=== PATIENT | male | born 1955 | race Hispanic/Latino ===

== ENCOUNTER 2018-03-31 20:53 | Emergency (ER) | payer MEDICARE ==
[~2018-03-31] VITALS: Ht 167.6 cm; Wt 74.8 kg
--- OUTSIDE RECORDS SUMMARY | 2018-03-31 20:56 | XMS REPORT ---
Author Author [facility] Address Unknown Phone Unavailable Care Team Providers Care Laborer [employer] Name Role Phone Unavailable Unavailable Problems This patient has no known problems. Allergies, Adverse Reactions, Alerts This patient has no known allergies or adverse reactions. Medications This patient has no known medications. Encounters Start Date/Time End Date/Time Encounter Type Admission Type Attending [facility] Care Department Encounter ID 2018-04-04 00:00:00 Inpatient [facility] [id number] 2018-03-21 09:30:23 Inpatient [facility] [id number] 2018-01-03 00:00:00 Inpatient [facility] [id number] 2017-12-20 13:25:37 Inpatient [facility] [id number] 2017-11-22 11:44:08 Inpatient [facility] [id number] 2017-10-25 13:36:26 Inpatient [facility] [id number] 2017-09-13 12:56:28 Inpatient [facility] [id number] 2017-09-02 00:00:00 Inpatient [facility] [id number] 2017-08-23 00:00:00 Inpatient [facility] [id number] 2017-08-21 11:49:01 Inpatient [facility] [id number] 2017-08-21 00:00:00 Inpatient [facility] [id number] 2018-04-04 00:00:00 2018-04-04 00:00:00 Outpatient [facility] [id number] 2018-03-24 15:07:13 2018-03-24 15:07:13 Outpatient [facility] [id number] 2018-03-24 14:13:35 2018-03-24 14:13:35 Outpatient [facility] [id number] 2018-03-24 00:00:00 2018-03-24 00:00:00 Outpatient [facility] [id number] 2018-03-22 18:10:41 2018-03-22 18:10:41 Emergency [facility] [id number] 2018-03-21 07:47:43 2018-03-21 07:47:43 Outpatient [facility] [id number] 2018-03-03 14:53:39 2018-03-03 14:53:39 Outpatient [facility] [id number] 2018-02-23 15:31:19 2018-02-23 15:31:19 Outpatient [facility] [id number] 2018-02-22 11:25:25 2018-02-22 11:25:25 Outpatient [facility] [id number] 2018-02-21 08:25:14 2018-02-21 08:25:14 Outpatient [facility] [id number] 2018-02-20 23:43:40 2018-02-20 23:43:40 Outpatient [facility] [id number] 2018-02-20 15:11:45 2018-02-20 15:11:45 Outpatient [facility] [id number] 2018-02-20 00:00:00 2018-02-20 00:00:00 Outpatient [facility] [id number] 2018-01-08 00:00:00 2018-01-08 00:00:00 Outpatient [facility] [id number] 2018-01-03 00:00:00 2018-01-03 00:00:00 Outpatient [facility] [id number] 2017-12-25 00:00:00 2017-12-25 00:00:00 Outpatient [facility] [id number] 2017-12-20 13:26:09 2017-12-20 13:26:09 Outpatient [facility] [id number] 2017-12-11 09:19:43 2017-12-11 09:19:43 Outpatient [facility] [id number] 2017-12-11 00:00:00 2017-12-11 00:00:00 Outpatient [facility] [id number] 2017-12-09 11:27:14 2017-12-09 11:27:14 Outpatient [facility] [id number] 2017-11-27 08:54:33 2017-11-27 08:54:33 Outpatient [facility] [id number] 2017-11-25 12:32:44 2017-11-25 12:32:44 Outpatient [facility] [id number] 2017-11-22 00:00:00 2017-11-22 00:00:00 Outpatient [facility] [id number] 2017-11-20 11:57:49 2017-11-20 11:57:49 Outpatient [facility] [id number] 2017-11-20 11:52:17 2017-11-20 11:52:17 Outpatient [facility] [id number] 2017-11-18 08:05:36 2017-11-18 08:05:36 Outpatient [facility] [id number] 2017-11-15 11:04:10 2017-11-15 11:04:10 Outpatient [facility] [id number] 2017-11-13 09:26:46 2017-11-13 09:26:46 Outpatient [facility] [id number] 2017-11-12 10:43:55 2017-11-12 10:43:55 Outpatient [facility] [id number] 2017-11-01 11:09:19 2017-11-01 11:09:19 Outpatient [facility] [id number] 2017-10-30 11:32:30 2017-10-30 11:32:30 Outpatient [facility] [id number] 2017-10-25 12:24:19 2017-10-25 12:24:19 Outpatient [facility] [id number] 2017-10-18 12:12:40 2017-10-18 12:12:40 Outpatient [facility] [id number] 2017-10-16 12:14:31 2017-10-16 12:14:31 Outpatient [facility] [id number] 2017-10-16 11:48:50 2017-10-16 11:48:50 Outpatient [facility] [id number] 2017-10-15 11:21:43 2017-10-15 11:21:43 Outpatient [facility] [id number] 2017-10-09 13:52:48 2017-10-09 13:52:48 Outpatient [facility] [id number] 2017-10-04 09:58:14 2017-10-04 09:58:14 Outpatient [facility] [id number] 2017-10-02 15:38:14 2017-10-02 15:38:14 Outpatient [facility] [id number] 2017-10-02 11:08:57 2017-10-02 11:08:57 Outpatient [facility] [id number] 2017-10-02 00:00:00 2017-10-02 00:00:00 Outpatient [facility] [id number] 2017-10-01 10:56:51 2017-10-01 10:56:51 Outpatient [facility] [id number] 2017-09-18 00:00:00 2017-09-18 00:00:00 Outpatient [facility] [id number] 2017-09-17 00:00:00 2017-09-17 00:00:00 Outpatient [facility] [id number] 2017-09-13 12:35:41 2017-09-13 12:35:41 Outpatient [facility] [id number] 2017-09-13 02:49:34 2017-09-13 02:49:34 Emergency [facility] [id number] 2017-09-12 21:16:57 2017-09-12 21:16:57 Emergency [facility] [id number] 2017-09-12 18:51:00 2017-09-12 18:51:00 Emergency [facility] [id number] 2017-09-06 00:00:00 2017-09-06 00:00:00 Outpatient [facility] [id number] 2017-09-04 00:00:00 2017-09-04 00:00:00 Outpatient [facility] [id number] 2017-09-03 00:00:00 2017-09-03 00:00:00 Outpatient [facility] [id number] 2017-09-02 00:00:00 2017-09-02 00:00:00 Outpatient [facility] [id number] 2017-08-23 10:37:46 2017-08-23 10:37:46 Outpatient [facility] [id number] 2017-08-23 00:00:00 2017-08-23 00:00:00 Outpatient [facility] [id number] 2017-08-21 13:15:51 2017-08-21 13:15:51 Outpatient [facility] [id number] 2017-08-21 00:00:00 2017-08-21 00:00:00 Outpatient [facility] [id number] 2017-08-20 12:18:49 2017-08-20 12:18:49 Outpatient [facility] [id number] 2017-08-09 10:34:49 2017-08-09 10:34:49 Outpatient [facility] [id number] 2017-08-07 11:19:55 2017-08-07 11:19:55 Outpatient [facility] [id number] 2017-08-06 10:24:43 2017-08-06 10:24:43 Outpatient [facility] [id number] 2017-08-01 00:00:00 2017-08-01 00:00:00 Outpatient [facility] [id number] 2017-08-01 00:00:00 2017-08-01 00:00:00 Outpatient [facility] [id number] 2017-07-30 00:00:00 2017-07-30 00:00:00 Outpatient [facility] [id number] 2017-07-26 10:41:56 2017-07-26 10:41:56 Outpatient [facility] [id number] 2017-07-25 00:00:00 2017-07-25 00:00:00 Outpatient [facility] [id number] 2017-07-24 11:34:13 2017-07-24 11:34:13 Outpatient [facility] [id number] 2017-07-22 11:45:33 2017-07-22 11:45:33 Outpatient [facility] [id number] 2017-07-22 11:10:33 2017-07-22 11:10:33 Outpatient [facility] [id number] 2017-07-19 08:14:55 2017-07-19 08:14:55 Outpatient [facility] [id number] 2017-07-17 00:00:00 2017-07-17 00:00:00 Outpatient [facility] [id number] 2017-07-17 00:00:00 2017-07-17 00:00:00 Outpatient [facility] [id number] 2017-07-12 11:14:42 2017-07-12 11:14:42 Outpatient [facility] [id number] 2017-07-10 11:33:50 2017-07-10 11:33:50 Outpatient [facility] [id number] 2017-07-09 00:00:00 2017-07-09 00:00:00 Outpatient [facility] [id number] 2017-07-08 11:17:23 2017-07-08 11:17:23 Outpatient [facility] [id number] 2017-07-08 10:28:49 2017-07-08 10:28:49 Outpatient [facility] [id number] 2017-06-28 12:08:39 2017-06-28 12:08:39 Outpatient [facility] [id number] 2017-06-27 00:00:00 2017-06-27 00:00:00 Outpatient [facility] [id number] 2017-06-27 00:00:00 2017-06-27 00:00:00 Outpatient [facility] [id number] 2017-06-26 11:32:11 2017-06-26 11:32:11 Outpatient [facility] [id number] 2017-06-25 00:00:00 2017-06-25 00:00:00 Outpatient [facility] [id number] 2017-06-24 12:20:46 2017-06-24 12:20:46 Outpatient [facility] [id number] 2017-06-24 10:52:36 2017-06-24 10:52:36 Outpatient [facility] [id number] 2017-06-19 09:28:02 2017-06-19 09:28:02 Outpatient [facility] [id number] 2017-06-19 09:06:14 2017-06-19 09:06:14 Outpatient [facility] [id number] 2017-06-17 11:11:13 2017-06-17 11:11:13 Outpatient [facility] [id number] 2017-06-14 09:42:47 2017-06-14 09:42:47 Outpatient [facility] [id number] 2017-06-12 11:33:59 2017-06-12 11:33:59 Outpatient [facility] [id number] 2017-06-11 10:58:44 2017-06-11 10:58:44 Outpatient [facility] [id number] 2017-05-31 15:05:47 2017-05-31 15:05:47 Outpatient [facility] [id number] 2017-05-29 11:27:48 2017-05-29 11:27:48 Outpatient [facility] [id number] 2017-05-27 12:18:16 2017-05-27 12:18:16 Outpatient [facility] [id number] 2017-05-27 12:03:44 2017-05-27 12:03:44 Outpatient [facility] [id number] 2017-05-16 10:44:51 2017-05-16 10:44:51 Outpatient [facility] [id number] 2017-05-14 11:47:13 2017-05-14 11:47:13 Outpatient [facility] [id number] 2017-05-13 11:57:48 2017-05-13 11:57:48 Outpatient [facility] [id number] 2017-05-02 10:11:58 2017-05-02 10:11:58 Outpatient [facility] [id number] 2017-04-30 11:06:48 2017-04-30 11:06:48 Outpatient [facility] [id number] 2017-04-26 11:17:18 2017-04-26 11:17:18 Outpatient [facility] [id number] 2017-04-26 10:31:12 2017-04-26 10:31:12 Outpatient [facility] [id number] 10:04:26 2017 10:04:26 Outpatient [facility] [id number] 2017-04-17 00:00:00 2017-04-17 00:00:00 Outpatient [facility] [id number] 2017-04-12 00:00:00 2017-04-12 00:00:00 Outpatient [facility] [id number] 2017-04-05 10:52:52 2017-04-05 10:52:52 Outpatient [facility] [id number] 2017-04-03 11:46:58 2017-04-03 11:46:58 Outpatient [facility] [id number] 2017-04-03 00:00:00 2017-04-03 00:00:00 Outpatient [facility] [id number] 2017-04-01 10:00:06 2017-04-01 10:00:06 Outpatient [facility] [id number] 2017-03-22 09:49:25 2017-03-22 09:49:25 Outpatient [facility] [id number] 2017-03-20 10:30:22 2017-03-20 10:30:22 Outpatient [facility] [id number] 2017-03-18 09:56:49 2017-03-18 09:56:49 Outpatient [facility] [id number] 2017-03-08 11:11:24 2017-03-08 11:11:24 Outpatient [facility] [id number] 2017-03-08 10:12:05 2017-03-08 10:12:05 Outpatient [facility] [id number] 2017-03-06 10:18:58 2017-03-06 10:18:58 Outpatient [facility] [id number] 2017-03-04 00:00:00 2017-03-04 00:00:00 Outpatient [facility] [id number] 2017-03-01 11:26:42 2017-03-01 11:26:42 Outpatient [facility] [id number] 2017-03-01 00:00:00 2017-03-01 00:00:00 Outpatient [facility] [id number] 2017-03-01 00:00:00 2017-03-01 00:00:00 Outpatient [facility] [id number] 2017-02-27 00:00:00 2017-02-27 00:00:00 Outpatient [facility] [id number] 2017-02-22 10:05:22 2017-02-22 10:05:22 Outpatient [facility] [id number] 2017-02-20 11:12:28 2017-02-20 11:12:28 Outpatient [facility] [id number] 2017-02-18 00:00:00 2017-02-18 00:00:00 Outpatient [facility] [id number] 2017-02-15 10:18:14 2017-02-15 10:18:14 Outpatient [facility] [id number] 2017-02-15 09:42:08 2017-02-15 09:42:08 Outpatient [facility] [id number] 2017-02-13 09:49:23 2017-02-13 09:49:23 Outpatient [facility] [id number] 2017-02-13 09:43:03 2017-02-13 09:43:03 Outpatient [facility] [id number] 2017-02-11 10:09:53 2017-02-11 10:09:53 Outpatient [facility] [id number] 2017-02-08 10:28:55 2017-02-08 10:28:55 Outpatient [facility] [id number] 2017-02-06 12:04:12 2017-02-06 12:04:12 Outpatient [facility] [id number] 2017-02-05 00:00:00 2017-02-05 00:00:00 Outpatient [facility] [id number] 2017-02-01 09:41:34 2017-02-01 09:41:34 Outpatient [facility] [id number] 2017-02-01 00:00:00 2017-02-01 00:00:00 Outpatient [facility] [id number] 2017-01-25 16:12:01 2017-01-25 16:12:01 Outpatient [facility] [id number] 2017-01-25 11:29:36 2017-01-25 11:29:36 Outpatient [facility] [id number] 2017-01-24 00:00:00 2017-01-24 00:00:00 Outpatient [facility] [id number] 2017-01-23 10:35:12 2017-01-23 10:35:12 Outpatient [facility] [id number] 2017-01-21 00:00:00 2017-01-21 00:00:00 Outpatient [facility] [id number] 2017-01-18 08:46:36 2017-01-18 08:46:36 Outpatient [facility] [id number] 2017-01-11 10:39:36 2017-01-11 10:39:36 Outpatient [facility] [id number] 2017-01-11 00:00:00 2017-01-11 00:00:00 Outpatient [facility] [id number] 2017-01-09 10:46:38 2017-01-09 10:46:38 Outpatient [facility] [id number] 2017-01-07 00:00:00 2017-01-07 00:00:00 Outpatient [facility] [id number] 2017-01-04 11:00:45 2017-01-04 11:00:45 Outpatient [facility] [id number] 2017-01-04 09:56:25 2017-01-04 09:56:25 Outpatient [facility] [id number] 2017-01-04 00:00:00 2017-01-04 00:00:00 Outpatient [facility] [id number] 2017-01-02 09:58:19 2017-01-02 09:58:19 Outpatient [facility] [id number] 2017-01-02 09:58:15 2017-01-02 09:58:15 Outpatient [facility] [id number] 2016-12-31 10:53:42 2016-12-31 10:53:42 Outpatient [facility] [id number] 2016-12-28 11:34:24 2016-12-28 11:34:24 Outpatient [facility] [id number] 2016-12-26 11:29:13 2016-12-26 11:29:13 Outpatient [facility] [id number] 2016-12-25 10:58:18 2016-12-25 10:58:18 Outpatient [facility] [id number] 2016-12-25 00:00:00 2016-12-25 00:00:00 Outpatient [facility] [id number] 2016-12-25 00:00:00 2016-12-25 00:00:00 Outpatient [facility] [id number] 2016-12-21 00:00:00 2016-12-21 00:00:00 Outpatient [facility] [id number] 2016-12-14 08:31:08 2016-12-14 08:31:08 Outpatient [facility] [id number] 2016-12-12 11:37:45 2016-12-12 11:37:45 Outpatient [facility] [id number] 2016-12-10 00:00:00 2016-12-10 00:00:00 Outpatient [facility] [id number] 2016-12-10 00:00:00 2016-12-10 00:00:00 Outpatient [facility] [id number] 2016-12-07 11:44:47 2016-12-07 11:44:47 Outpatient [facility] [id number] 2016-12-07 10:44:14 2016-12-07 10:44:14 Outpatient [facility] [id number] 2016-11-30 09:42:00 2016-11-30 09:42:00 Outpatient [facility] [id number] 2016-11-28 10:16:40 2016-11-28 10:16:40 Outpatient [facility] [id number] 2016-11-26 08:14:41 2016-11-26 08:14:41 Outpatient [facility] [id number] 2016-11-26 00:00:00 2016-11-26 00:00:00 Outpatient [facility] [id number] 2016-11-23 00:00:00 2016-11-23 00:00:00 Outpatient [facility] [id number] 2016-11-20 00:00:00 2016-11-20 00:00:00 Outpatient [facility] [id number] 2016-11-16 10:26:07 2016-11-16 10:26:07 Outpatient [facility] [id number] 2016-11-14 10:11:21 2016-11-14 10:11:21 Outpatient [facility] [id number] 2016-11-12 00:00:00 2016-11-12 00:00:00 Outpatient [facility] [id number] 2016-11-09 12:19:25 2016-11-09 12:19:25 Outpatient [facility] [id number] 2016-11-09 10:49:59 2016-11-09 10:49:59 Outpatient [facility] [id number] 2016-11-08 08:36:42 2016-11-08 08:36:42 Outpatient [facility] [id number] 2016-11-08 08:28:03 2016-11-08 08:28:03 Outpatient [facility] [id number] 2016-11-06 07:49:09 2016-11-06 07:49:09 Outpatient [facility] [id number] 2016-11-06 00:00:00 2016-11-06 00:00:00 Outpatient [facility] [id number] 2016-11-02 00:00:00 2016-11-02 00:00:00 Outpatient [facility] [id number] 2016-11-01 00:00:00 2016-11-01 00:00:00 Outpatient [facility] [id number] 2016-11-01 00:00:00 2016-11-01 00:00:00 Outpatient [facility] [id number] 2016-10-31 11:17:34 2016-10-31 11:17:34 Outpatient [facility] [id number] 2016-10-30 00:00:00 2016-10-30 00:00:00 Outpatient [facility] [id number] 2016-10-29 12:24:29 2016-10-29 12:24:29 Outpatient [facility] [id number] 2016-10-26 10:34:43 2016-10-26 10:34:43 Outpatient [facility] [id number] 2016-10-24 00:00:00 2016-10-24 00:00:00 Outpatient [facility] [id number] 2016-10-22 00:00:00 2016-10-22 00:00:00 Outpatient [facility] [id number] 2016-10-17 10:07:42 2016-10-17 10:07:42 Outpatient [facility] [id number] 2016-10-15 11:16:54 2016-10-15 11:16:54 Outpatient [facility] [id number] 2016-10-11 09:55:40 2016-10-11 09:55:40 Outpatient [facility] [id number] 2016-10-09 11:09:33 2016-10-09 11:09:33 Outpatient [facility] [id number] 2016-10-05 12:19:47 2016-10-05 12:19:47 Outpatient [facility] [id number] 2016-10-05 11:44:32 2016-10-05 11:44:32 Outpatient [facility] [id number] 2016-09-27 08:47:34 2016-09-27 08:47:34 Outpatient [facility] [id number] 2016-09-25 10:36:25 2016-09-25 10:36:25 Outpatient [facility] [id number] 2016-09-24 08:51:09 2016-09-24 08:51:09 Outpatient [facility] [id number] 2016-09-13 10:27:35 2016-09-13 10:27:35 Outpatient [facility] [id number] 2016-09-11 10:59:16 2016-09-11 10:59:16 Outpatient [facility] [id number] 2016-09-10 10:49:03 2016-09-10 10:49:03 Outpatient [facility] [id number] 2016-09-07 09:34:40 2016-09-07 09:34:40 Outpatient [facility] [id number] 2016-09-07 09:08:37 2016-09-07 09:08:37 Outpatient [facility] [id number] 2016-08-30 10:37:58 2016-08-30 10:37:58 Outpatient [facility] [id number] 2016-07-13 10:32:13 2016-07-13 10:32:13 Outpatient [facility] [id number]
[2018-03-31] MEDS ORDERED: CHLORPROMAZINE HCL INJ 25 MG/ML AMP ONE (22:15)
[2018-03-31] MEDS ORDERED: CHLORPROMAZINE HCL INJ 25 MG/ML AMP INJ ONE (22:15)
== END 2018-03-31 23:58 | disposition home or self-care (01) ==
LOC: ER 20:53
DX: R10.13 Epigastric pain (principal); R11.0 Nausea; R06.6 Hiccough
CPT/HCPCS: 99282; J3230